=== PATIENT | male | born 1990 | race Caucasian/White ===

== ENCOUNTER 2019-07-06 04:40 | Emergency (ER) | payer SELFPAY, OTHER ==
[2019-07-06] MEDS: KETOROLAC 30 MG INJ IM (05:12)
== END 2019-07-06 06:08 | disposition home or self-care (01) ==
LOC: E/R 04:40
DX: S62.334A Displaced fracture of neck of fourth metacarpal bone, right hand, initial encounter for closed fracture (principal); W22.01XA Walked into wall, initial encounter; Y92.9 Unspecified place or not applicable
CPT/HCPCS: 29125; 73130-RT; 96372; 99284-25

== ENCOUNTER 2019-07-08 04:32 | Emergency (ER) | payer MEDICAID ==
[2019-07-08] MEDS: HYDROCODONE/APAP (5/325) TAB PO (05:17)
== END 2019-07-08 05:44 | disposition home or self-care (01) ==
LOC: FTE 04:32
DX: S62.334D Displaced fracture of neck of fourth metacarpal bone, right hand, subsequent encounter for fracture with routine healing (principal); W22.8XXD Striking against or struck by other objects, subsequent encounter; Z76.0 Encounter for issue of repeat prescription
CPT/HCPCS: 99283; Z7502